=== PATIENT | male | born 1990 | race Caucasian/White ===

== ENCOUNTER 2016-07-17 06:04 | Day surgery (SDC) | payer OTHER ==
[2016-07-17] VITALS (12 sets, daily range): BP systolic 98–121; BP diastolic 60–71; PULSE 52–81; RESP 16–34; Ht 172.7 cm; Wt 80.0 kg
[~2016-07-17] VITALS: Ht 172.7 cm; Wt 80.0 kg
[~2016-07-17 06:04] MED LIST: CEFAZOLIN 2 GM/50 ML (PMX) 50 ML IVPB SCH; SOD CHLORIDE 0.9% 1,000 ML IV SCH
[2016-07-17] MEDS ORDERED: NEOSTIGMINE 3 MG/3 ML SYRINGE ONE (07:00)
[2016-07-17] MEDS ORDERED: GLYCOPYRROLATE 0.4 MG INJ ONE (07:00)
[2016-07-17] MEDS ORDERED: ALBU18HF INHALATION (08:15)
[2016-07-17] MEDS ORDERED: BUPIVACAINE 0.25% (MPF) 30 ML INJ ONE (08:47)
[2016-07-17] MEDS ORDERED: ROCURONIUM 50 MG INJ ONE (09:06)
[2016-07-17] MEDS ORDERED: PROPOFOL 20 ML ONE (09:06)
[2016-07-17] MEDS ORDERED: LIDOCAINE 2% (SDV) 5 ML INJ ONE (09:07)
[2016-07-17] MEDS ORDERED: ACETAMINOPHEN 1000MG/100ML IV 100 ML ONE (09:24)
--- NOTE | 2016-07-17 09:53 | OPR ---
Date/Time of Note Date/Time of Note DATE: 07/17/16 TIME: 09:52 Operative Report Procedure Date: July 17, 2016 Preoperative Diagnosis symptomatic gallstones Postoperative Diagnosis same Operation Performed laparoscopic cholecystectomy Surgeon: David MANJARREZ Specimens gallbladder David MANJARREZ July 17, 2016 09:53
[2016-07-17] MEDS ORDERED: ONDANSETRON 4 MG INJ IV PRN (10:00)
[2016-07-17] MEDS ORDERED: FENTAnyl 50 MCG/ML VIAL IV PRN ×2 (10:00)
[2016-07-17] MEDS ORDERED: DIPHENHYDRAMINE 50 MG INJ IV PRN (10:00)
[2016-07-17] MEDS ORDERED: HYDROmorphONE (0.2 MG/ML) 10ML SYG IV PRN ×3 (10:00)
[2016-07-17] MEDS ORDERED: OXYCODONE/ACETAMINOPHEN (5/325) TAB PO PRN (10:00)
[2016-07-17] MEDS ORDERED: MEPERIDINE 25 MG INJ IV PRN (10:00)
[2016-07-17] MEDS ORDERED: LABETALOL HCL 20MG INJ IV PRN (10:00)
[2016-07-17] MEDS ORDERED: HYDROCODONE/APAP (5/325) TAB PO ONE (10:00)
[2016-07-17] MEDS ORDERED: hydrALAzine 20 MG INJ IV PRN (10:00)
[2016-07-17] MEDS ORDERED: EPHEDrine SULFATE 50 MG/5 ML SYG IV PRN (10:00)
--- NOTE | 2016-07-17 10:17 | OPR ---
DATE OF OPERATION: 07/17/2016 INDICATION: This is a 26-year-old male with symptomatic gallstones. He requests surgical excision of his gallbladder. The risks, alternatives, benefits, and personnel were discussed with the patien t. Patient expressed understanding and consented to the operation. PREOPERATIVE DIAGNOSIS: Symptomatic gallstones. POSTOPERATIVE DIAGNOSIS: Symptomatic gallstones. OPERATION: Laparoscopic cholecystectomy. SURGEON: Prince Rivera MD SPECIMEN: Gallbladder. COMPLICATIONS: None. ANESTHESIA: General. PROCEDURE: The patient was taken to the OR and prepped and draped in the usual sterile fashion. A surgical timeout was performed. IV antibiotics were given. An infraumbilical incision was made wit h a 15 blade. Dissection cautery was carried down to the fascia, which was divided with curved Navarrete scissors. An 0 Vicryl U-stitch was placed into the fascia. Balloon Marck trocar was introduced. Pneumoperitoneum was established. Midepigastric 12-mm optical trocar and right upper quadrant, rig ht upper flank 5-mm optical trocars were placed under direct visualization. Upon initial inspection there were adhesions to the gallbladder which were taken down bluntly. The cystic duct was identif ied. The critical view was established. The cystic duct was divided using a 35-mm [place] vascular load stapler. Clips were placed on the staple line. The cystic artery was divided using a 35-mm [place] vascular load stapler. Additional clips were placed on the staple line. The gallbladder was taken off the gallbladder bed. There was good hemostasis. The gallbladder was retrieved using an EndoCatch bag. Ports were removed under direct visualization. 0 Vicryl U-stitch was tied down. Th e skin was closed using skin robert. Local anesthesia was injected. Dry dressings were applied. Dictated By: PRINCE MONTOYA/ELISE Conf#: [id number] DID#: [id number]
[2016-07-17] MEDS ORDERED: FENTAnyl 50 MCG/ML VIAL ONE (10:19)
[2016-07-17] MEDS ORDERED: ONDANSETRON 4 MG INJ ONE (10:20)
[2016-07-17] MEDS ORDERED: MEPERIDINE 25 MG INJ ONE (10:20)
[2016-07-17] MEDS: FENTAnyl 50 MCG/ML VIAL IV PRN ×2 (10:29→10:36)
[2016-07-17] MEDS ORDERED: HYDROCODONE/APAP (5/325) TAB ONE (10:44)
--- NOTE | 2016-07-17 10:51 | OPPN ---
Date/Time of Note Date/Time of Note DATE: 07/17/16 TIME: 10:51 Post-Anesthesia Notes Post-Anesthesia Note Last documented vital signs Vital Signs Date Time Temp Pulse Resp B/P Pulse Ox O2 Delivery O2 Flow Rate FiO2 07/17/16 10:38 58 34 100/65 94 Room Air 07/17/16 10:08 98.4 Activity: WNL Respiratory function: WNL Cardiovascular function: WNL Mental status: Baseline Pain reasonably controlled: Yes Hydration appropriate: Yes Nausea/Vomiting absent: Yes NANCY BAIRD July 17, 2016 10:51
[2016-07-17] MEDS ORDERED: HYDROmorphONE 1 MG/ML SYG IV PRN (12:00)
[2016-07-17] MEDS ORDERED: HYDROmorphONE 1 MG/ML SYG ONE ×2 (12:20→12:21)
== END 2016-07-17 13:00 | disposition home or self-care (01) ==
LOC: SDS 06:04 → GIL 06:17 → SDS 13:00
PROVIDERS: ATTEND Surgery
DX: K80.20 Calculus of gallbladder without cholecystitis without obstruction (principal); J45.909 Unspecified asthma, uncomplicated
CPT/HCPCS: 47562; 88304; J0131; J1170; J2175; J2405; J2710; J3010; Z7512; Z7610